=== PATIENT | male | born 1950 | race African-American/Black ===

== ENCOUNTER 2025-05-18 09:58 | Day surgery (SDC) | payer OTHER, SELFPAY ==
[2025-05-18] VITALS (14 sets, daily range): BP systolic 117–146; BP diastolic 69–85; BMI 31.2
--- NOTE | 2025-05-18 14:55 | ITS.CL.PACE ---
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
Pacemaker Implant
Procedure Report:
Primary Care Doctor: Dr Nitish Johnson
Primary Batch Freezer Operator: Dr Albert Wilkes
Procedure Date: 05/18/2025
Name of procedure:
1. Placement of a dual-chamber pacemaker with left bundle area pacing lead for conduction system pacing
2. Subclavian venography
History:
1. Patient is a very pleasant 74-year-old male with a past medical history significant for valvular heart disease, hypertension, CAD with recent PCI, dyslipidemia, symptomatic paroxysmal atrial fibrillation, tachybradycardia syndrome, sick sinus
syndrome, symptomatic bradycardia with pauses and need for AV becka blocking agents
2. Please refer to H&P for complete history.
Indication:
Symptomatic bradycardia with high degree AV block
Symptomatic sick sinus syndrome
Tachybradycardia syndrome
Need for AV becka blocking agents in the setting of ischemic heart disease and rate control for AF
Methods:
After informed consent was obtained, the patient was brought to the EP laboratory in a postabsorptive, nonsedated state. Peripheral IV access was established. Prophylactic antibiotics were administered prior to incision. Continuous ECG, blood
pressure, and pulse oximetry were initiated. Cardioversion patch electrodes were placed on the patient's chest and back. A grounding patch was applied to the skin. Sedation was administered by anesthesia services.
In order to define the extrathoracic portion of the subclavian vein and exclude significant venous obstruction or anomalous anatomy, subclavian venography was performed prior to the procedure. Using the patient's left peripheral IV, contrast was
injected and images were recorded. The left subclavian vein and SVC were found to be widely patent.
The left chest was prepared and draped in a sterile fashion. A time-out was performed. Local anesthesia was injected in the subcutaneous tissue in the infraclavicular area. An incision was made medial to the deltopectoral groove. The subcutaneous
tissue was dissected the level of the prepectoral fascia. A subcutaneous pocket was created. Under fluoroscopic guidance and with the assistance of the images from the venogram, 2 separate venipunctures were made using micropuncture and modified
Seldinger technique. These were performed in the extrathoracic portion of the subclavian vein. Guidewires were passed and two peel-away sheaths were placed, and used to advance leads into the circulation.
Fluoroscopy was used to determine likely anatomic site for left bundle branch pacing. The Medtronic C315 sheath was used to deliver the Medtronic 3830 Selectsecure pacing lead with the helix exposed just exposed from the sheath tip during continuous
monitoring when pacemapping the septum during gentle clockwise rotation to obtain a paced QRS morphology of a W pattern in lead V1. Once the suspected optimal site was identified, lead deployment was performed with several rapid rotations as paced
QRS morphology was intermittently monitored until a paced QRS complex in lead V1 demonstrated development of an R wave (qR or rSR). Unipolar pacing impedance dropped by approximately 100-200 ohms suggesting it had reached the left ventricular
subendocardial. Stable VEgm injury current is present throughout lead position and at end of case. Final unipolar pacing impedance is 1000 Ohms. Unipolar pacing threshold is stable at 1.0 V @ 0.4 ms. The patient had pre-existing narrow QRS at
baseline. Final conduction system paced QRS complex duration is 117 ms, LVAT is 74 ms, and peak V5 -> peak V1 timing is 33 ms. The C315 sheath was slit under fluoroscopy ensuring lead position and stability.
Next, the right atrial lead was positioned in the right atrial appendage. Adequate sensing and pacing parameters were found, and no diaphragmatic stimulation was seen with high-output pacing. Both sheaths were split, and the leads were secured to
the fascia with Ethibond ties.
The pocket was flushed with antibiotic solution and hemostasis was assured. The generator was connected to the leads and placed inside the pocket. The device was sutured to the fascia. Antibiotic envelope was used. Floseal was applied. The wound
was closed with 3 running layers of absorbable suture, and steri-strips were applied. Dressing applied over steri-strips in standard fashion.
Following the procedure, the patient was taken to the recovery area in stable condition. A chest x-ray to be obtained post procedure as routine.
Lead parameters and device programming:
- RA Lead (Medtronic, Model 5076, #[id number]): Sensing 4.0 mV, Pacing threshold 0.4 V at 0.4 ms, Imp 475 ohm
- RV Lead (Medtronic, Model 3830, #[id number]): Sensing 16.0 mV, Pacing threshold 0.5 V at 0.4 ms, Imp 912 ohm (bipolar)
- Device: Medtronic, Model W1DR01 pacemaker (#[id number]), programmed AAIR-DDDR mode, 60 - 130 ppm
Conclusions:
1. Successful placement of a dual-chamber pacemaker with conduction system pacing (LBBAP)
2. Subclavian venography
Recommendations:
- Admit
- Chest x-ray tonight, [facility] in AM.
- IV antibiotics while the patient is admitted.
- OK to resume home medications as indicated
- Continue Plavix 75 mg daily, Xarelto [address] Wilkes; resume Xarelto 05/19/2025 PM as long as patient and site stable
- Pressure dressing to be removed in AM, aquacell to remain until wound check
- Follow-up will be arranged in the office in 7-10 days post-discharge for incision check
Mauricio Hinojosa DO, FAC, RS
Clinical Cardiac Career Discovery Teacher
cc: Dr Nitish Johnson; Dr Albert Wilkes
--- NOTE | 2025-05-18 18:00 | PTCARENOTE ---
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 AAOx3, VSS. First degree heart block with bundle branch on tele. Left chest wall pressure dressing and immobilizer intact. Precautions review. Call young within reach.
[2025-05-18] MEDS: TYLENOL 650 MG PO (18:01)
[2025-05-18] MEDS: PLAVIX 75 MG PO (18:01)
[2025-05-18] MEDS: ANCEF 5 IV (22:47)
[2025-05-19] VITALS: BP 127/94
[2025-05-19 00:30] VITALS: BP 144/82
[2025-05-19 01:00] VITALS: BP 154/86
[2025-05-19 02:00] VITALS: BP 126/72
--- NOTE | 2025-05-19 02:04 | PTCARENOTE ---
ax3 afebrile bp wnl - sinus 1st degree with occasional v paced beats. pacemaker dsg site intact.
[2025-05-19 03:05] VITALS: BP 135/80
[2025-05-19 05:15] LABS: Hematocrit 34.2 % (39.0-52.0); Hemoglobin 11.6 g/dL (13.0-18.0); Mean Corp Hgb Conc. 33.9 g/dL (33.0-37.0); Mean Corpuscular Volume 82.6 fL (80.0-94.0); Platelet Count 245 10^3/uL (130-400); Red Cell Dist. Width 14.5 % (11.5-14.5)
[2025-05-19 05:40] LABS: Blood Urea Nitrogen 18 mg/dl (9-20); Calcium 9.1 mg/dl (8.4-10.2); Carbon Dioxide 25 mmol/L (22-30); Chloride 104 mmol/L (98-107); Estimated Creatinine Clearance 65 ml/min; Glucose 178 mg/dl (70-99); Magnesium 1.8 mg/dl (1.6-2.3); Potassium 3.9 mmol/L (3.5-5.1); Sodium 137 mmol/L (135-145); eGFR > 60.00
[2025-05-19] MEDS: ANCEF 5 IV (06:19)
[2025-05-19 07:23] VITALS: BP 147/86
[2025-05-19] MEDS: TYLENOL 650 MG PO (08:27)
[2025-05-19] MEDS: TOPROL XL 50 MG PO (08:28)
[2025-05-19] MEDS: PLAVIX 75 MG PO (08:28)
[2025-05-19] MEDS: CRESTOR 40 MG PO (08:28)
[2025-05-19] MEDS: NORVASC 5 MG PO (08:29)
[2025-05-19] MEDS: ZETIA 10 MG PO (08:29)
[2025-05-19] MEDS: COZAAR 50 MG PO (08:29)
--- NOTE | 2025-05-19 08:30 | PTCARENOTE ---
Assumed care of patient at change of shift. AAOx3, VSS, 98% on room air. Left surgical site dressing c/d/i. Sling maintained. Patient independent and ambulated to [facility]. Rates pain at 3 out of 10, Tylenol given. Call young within reach, spouse at
the bedside.
--- NOTE | 2025-05-19 09:33 | W.PN.CARDCBS ---
Addendum entered and electronically signed by Carmine Orozco MD 05/19/25 10:03:
Patient seen and examined
agree with [facility] RN note and assessment
Reviewed chest x-ray
Appropriate atrial sensing and ventricular sensing and pacing demonstrated on telemetry
Lead positions are stable on chest x-ray
Patient does not report any symptoms
Exam:
HEENT normocephalic atraumatic
JVP 6
Cor regular and paced without murmur
Lungs clear to auscultation bilaterally
Pacemaker site clean dry and intact without hematoma
Abdomen soft nontender positive bowel sounds
No extremity edema
Impression:
Symptomatic SSS
Tachybradycardia syndrome with pauses
post DC PPM LBAP 05/18/25
HTN
CAD with multiple remote PCI, most recently 04/18/25 PCI D1 with LAD kissing balloons
dyslipidemia
PAF on Xarelto
BPH
Prostate cancer post XRT
Plan:
post device site stable
mild pain relief with tylenol
site stable with scant drainage
CXR no PTX, leads in good position
tele SR 1deg AVB with occ AV pacing
CAD/PCI continue Plavix
OAC will resume in am Xarelto 20mg discussed with primary developer relations manager
Resume metoprolol at outpatient dose 50 mg daily
Activity restrictions reviewed
Incision check 1 week at [facility]
continue cardiac care with Dr. Wilkes
home today
Original Note:
Today's Communication / Plan
-
Post PPM for tachybradycardia syndrome
resume metoprolol xl 50mg daily
continue plavix and resume Xarelto 20mg in am
home today
Impression / Plan
-
Primary Care Doctor: Nitish Johnson MD
Primary Publications Writer: Albert Wilkes MD
74-year-old male with a past medical history significant for valvular heart disease, hypertension, CAD with recent PCI, dyslipidemia, symptomatic paroxysmal atrial fibrillation, tachybradycardia syndrome, sick sinus syndrome, symptomatic bradycardia
with pauses and need for AV becka blocking agents
Impression:
Symptomatic SSS
Tachybradycardia syndrome with pauses
post DC PPM LBAP 05/18/25
HTN
CAD with multiple remote PCI, most recently 04/18/25 PCI D1 with LAD kissing balloons
dyslipidemia
PAF on Xarelto
BPH
Prostate cancer post XRT
Plan:
post device site stable
mild pain relief with tylenol
site stable with scant drainage
CXR no PTX, leads in good position
tele SR 1deg AVB with occ AV pacing
CAD/PCI continue Plavix
OAC will resume in am Xarelto 20mg (discussed with Dr. Wilkes regarding decrease dose of Xarelto to 15mg per [facility] AF-PCI trail, but prefers to remain on 20mg with multiple stenting)
Resume toprol 50mg
Activity restrictions reviewed
Incision check 1 week at [facility]
continue cardiac care with Dr. Wilkes
home today
Progress Note - Publications Writer
Subjective
Date of Service: May 19, 2025
mild inc pain, no cp, sob
Objective
Labs:
05/19/25 04:38
05/19/25 04:38
Labs
Hgb 11.6 g/dL (13.0-18.0) L 05/19/25 04:38
Hct 34.2 % (39.0-52.0) L 05/19/25 04:38
Plt Count 245 10^3/uL (130-400) 05/19/25 04:38
Sodium 137 mmol/L (135-145) 05/19/25 04:38
Potassium 3.9 mmol/L (3.5-5.1) 05/19/25 04:38
BUN 18 mg/dl (9-20) 05/19/25 04:38
Creatinine 1.1 mg/dL (0.7-1.3) 05/19/25 04:38
Glucose 178 mg/dl (70-99) H 05/19/25 04:38
Vital Signs and I&O:
Vital Signs
Temp Pulse Resp BP Pulse Ox
97.8 F 85 20 147/86 98
05/19/25 07:24 05/19/25 08:29 05/19/25 07:24 05/19/25 08:29 05/19/25 08:30
Vital Signs
Temp Pulse Resp BP Pulse Ox
97.8 F 85 20 147/86 98
05/19/25 07:24 05/19/25 08:29 05/19/25 07:24 05/19/25 08:29 05/19/25 08:30
Intake & Output
05/17/25 05/18/25 05/19/25 05/20/25
06:59 06:59 06:59 06:59
Output Total 400 / 400
Balance -400 / -400
Physical Exam
Physical Exam
NAD, AOX3
S1, S2, RRR
CTAB, non labored, no wheeze
SNTND bsx4
L CW site scant marked old drainage, no HT
--- NOTE | 2025-05-19 11:29 | W.DS.TRANS ---
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
-
Discharge Instructions:
Discharge Diagnosis/Procedures Pacemaker implant
Diet Low Cholesterol
Driving Restrictions No driving for 1 week
Bathing Restrictions OK to Shower
Instructions:
Stand-Alone Forms: DC Inst - Implanted Device
Changes to Home Medications: No
Discharge Medications:
DC Medications w/original date entered in [employer]
amlodipine 5 mg tablet 5 mg PO DAILY 05/18/25
clopidogrel 75 mg tablet 75 mg PO DAILY 05/18/25
ezetimibe 10 mg tablet 10 mg PO DAILY 05/18/25
losartan 50 mg tablet 50 mg PO DAILY 05/18/25
mirabegron 25 mg tablet,extended release 24 hr 25 mg PO MOWEFR 05/18/25
rivaroxaban 20 mg tablet (Xarelto) 20 mg PO DAILY 05/18/25
Held on 05/19/25. Instructions: Resume on 05/20/25.
rosuvastatin 40 mg tablet 40 mg PO DAILY 05/18/25
tadalafil 5 mg tablet (Cialis) 5 mg PO DAILY PRN as needed 05/18/25
tamsulosin 0.4 mg capsule mg PO SUTUTHSA 05/18/25
metoprolol succinate 50 mg tablet,extended release 24 hr 50 mg PO DAILY #90 tabs 05/19/25
Home Medication Changes
Pending Results: No
--- NOTE | 2025-05-19 12:29 | PTCARENOTE ---
Patient escorted to main lobby in wheelchair with spouse.
--- NOTE | 2025-05-19 12:31 | CM ---
spoke to pt in room, he is prev indep, lives with his in a split level home with 5 steps to enter. he has a aicha at home to use if needed. plan is for dc to home today.
== END 2025-05-19 12:36 | disposition home or self-care (01) ==
LOC: CATH 09:58
PROVIDERS: Nurse Practitioner Adult Health; ATTENDING PHYSICIAN Internal Medicine Cardiovascular Disease; FAMILY PHYSICIAN Family Medicine
DX: I49.5 Sick sinus syndrome (principal); I48.0 Paroxysmal atrial fibrillation; E78.5 Hyperlipidemia, unspecified; I10 Essential (primary) hypertension; I25.10 Atherosclerotic heart disease of native coronary artery without angina pectoris; Z95.5 Presence of coronary angioplasty implant and graft; I44.0 Atrioventricular block, first degree; I45.10 Unspecified right bundle-branch block; C61 Malignant neoplasm of prostate; N40.0 Benign prostatic hyperplasia without lower urinary tract symptoms; Z92.3 Personal history of irradiation; Z79.02 Long term (current) use of antithrombotics/antiplatelets; Z79.01 Long term (current) use of anticoagulants; Z79.899 Other long term (current) drug therapy
CPT/HCPCS: 33208; 71045; 80048; 83735; 85027; 93005; C1769; C1785; C1887; C1898; Q9967